=== PATIENT | male | born 1975 | race Hispanic/Latino ===

== ENCOUNTER 2017-07-06 14:50 | Emergency (ER) | payer OTHER ==
[2017-07-06 15:03] VITALS: BP 143/90; PULSE 91; RESP 16; TEMP 98.1; O2SAT 99
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
== END 2017-07-06 17:15 | disposition home or self-care (01) ==
LOC: H.ER 14:50
DX: S62.306A Unspecified fracture of fifth metacarpal bone, right hand, initial encounter for closed fracture (principal); W22.8XXA Striking against or struck by other objects, initial encounter; Y92.89 Other specified places as the place of occurrence of the external cause

== ENCOUNTER 2017-07-18 07:33 | Day surgery (SDC) | payer OTHER ==
[2017-07-18 08:28] VITALS: BMI 21.2
[2017-07-18 08:34] VITALS: RESP 18
[2017-07-18] MEDS ORDERED: Lactated Ringer's 1,000 ML IV ONE (09:10)
[2017-07-18] MEDS ORDERED: Rocuronium 10 mg/ml (5 ml) ONE (09:55)
[2017-07-18] MEDS ORDERED: Midazolam 2 MG/2 ML VIAL ONE (09:55)
[2017-07-18] MEDS ORDERED: Propofol 10 mg/ml Inj (20 ML) ONE (09:55)
[2017-07-18] MEDS ORDERED: ePHEDrine 50 mg/ml Inj ONE (09:55)
[2017-07-18] MEDS ORDERED: Lidocaine 4% (Laryng-O-Jet) Kit MM ONE (09:55)
[2017-07-18] MEDS ORDERED: Succinylcholine 200 mg/10 ml Inj IV ONE (09:55)
[2017-07-18] MEDS ORDERED: Lidocaine 1% Inj (20ml) ONE (10:07)
[2017-07-18] MEDS ORDERED: Desflurane Inhalation Anesthetic Liq (240 ml) ONE (10:38)
[2017-07-18] MEDS ORDERED: Dexamethasone 4 mg/1 ml ONE (10:40)
[2017-07-18] MEDS ORDERED: Neostigmine Methylsulfate 2 MG/2 ML ML IV ONE (11:01)
[2017-07-18] MEDS ORDERED: Neostigmine Methylsulfate 3mg/3ml Syringe IV ONE (11:01)
--- NOTE | 2017-07-18 11:21 | PCM.SURG1 ---
Surgeon's Initial Post Op Note - Surgeon's Notes Surgeon: Dr. Celeste Lebron Shingle Packer: Dr. Ian Toscano Pre-Operative Diagnosis: Right hand displaced 5th Metcarpal fracture Operative Findings: see dictation Post-Operative Diagnosis: same Operation Performed: Closed reduction and pinning of 5th metacarpal farcture Specimen/Specimens Removed: none Estimated Blood Loss: EBL {In ML}: 5 Date of Surgery/Procedure: 07/18/17 Time of Surgery/Procedure: 11:00
--- NOTE | 2017-07-18 11:22 | CP.SDSHP ---
Same Day Surgery H & P - Allergies Allergies: Allergies No Known Allergies Allergy (Verified 07/18/17 08:28) - Physical Exam Vital Signs: Vital Signs 07/18/17 07/18/17 08:33 08:54 Temperature 98.3 F Pulse Rate 73 73 Respiratory 18 Rate Blood Pressure 125/80 O2 Sat by Pulse 98 Oximetry Short Stay Discharge - Short Stay Discharge Admitting Diagnosis/Reason for Visit: S62.325A Referrals: Celeste Lebron MD [Primary Care Provider] -
[2017-07-18] MEDS ORDERED: Lactated Ringer's 1,000 ML IV SCH (11:23)
[2017-07-18] MEDS: HYDROmorphone 0.5 mg/0.5 ml ISec IVP PRN ×2 (11:43→12:00)
[2017-07-18] MEDS ORDERED: Oxycodone/Acetaminophen 5/325 mg Tab PO PRN (11:49)
[2017-07-18 16:53] VITALS: BP 110/70; PULSE 81; TEMP 97.8; O2SAT 98
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
== END 2017-07-18 18:40 | disposition home or self-care (01) ==
LOC: H.OPSURG 07:33
PROVIDERS: ATTEND Orthopaedic Surgery
DX: S62.325A Displaced fracture of shaft of fourth metacarpal bone, left hand, initial encounter for closed fracture (principal); X58.XXXA Exposure to other specified factors, initial encounter
CPT/HCPCS: 26608; C1769; J0330; J0690; J1100; J1170; J2001; J2250; J2405; J2704; J2710; J3010; J7120